=== PATIENT | male | born 1985 | race African-American/Black ===

== ENCOUNTER 2021-10-31 16:57 | Emergency (ER) | payer SELFPAY ==
[2021-10-31] MEDS ORDERED: LIDOCAINE 1% W/EPI 1:100,000 MDV 20 ML VIAL ONE (17:46)
[2021-10-31] MEDS ORDERED: TETANUS & DIPHTHERIA TOX,ADULT 0.5 ML VIAL ONE (17:47)
--- NOTE | 2021-10-31 18:01 | ER ---
Nurse's Notes [facility] Name: Steve Hayward Age: 36 yrs Sex: Male : 1985 Arrival Date: 10/31/2021 Time: 17:07 Bed 25 Private MD: Diagnosis: Laceration without foreign body of other part of head Presentation: 10/31 17:45 Chief complaint: Patient states: hit my head when stood up and have lac. Coronavirus [facility] screen: Vaccine status: Patient reports receiving the 2nd dose of the covid vaccine. Ebola Screen: Patient negative for fever greater than or equal to 101.5 degrees Fahrenheit, and additional compatible Ebola Virus Disease symptoms. Complicating Factors: There are no complicating factors for this patient. Initial Sepsis Screen: Does the patient meet any 2 criteria? No. Patient's initial sepsis screen is negative. Does the patient have a suspected source of infection? No. Patient's initial sepsis screen is negative. Risk Assessment: Do you want to hurt yourself or someone else? Patient reports no desire to harm self or others. Onset of symptoms was October 31, 2021. 17:45 Method Of Arrival: Ambulatory [facility] 17:45 Acuity: LAURA 4 [facility] Triage Assessment: 17:48 General: Appears in no apparent distress. Behavior is calm, cooperative. Pain: [facility] Complains of pain in left frontal area Pain currently is 3 out of 10 on a pain scale. Quality of pain is described as aching. Neuro: No deficits noted. Injury Description: Laceration sustained to left frontal area is clean, 0.5 to 2.5 cm long, not bleeding, is bleeding no active bleeding noted. Historical: - Allergies: 17:46 No Known Allergies; jh6 - PMHx: 17:46 cholesterol; 6 - Immunization history:: Client reports receiving the 2nd dose of the Covid vaccine. - Social history:: Smoking status: Patient denies any tobacco usage or history of. Vital Signs: 17:45 BP 123 / 65; Pulse 71; Resp 18; Temp 97.7(O); Pulse Ox 97% on R/A; Weight 133.81 kg; 6 Height 5 ft. 8 in. (172.72 cm); Pain 3/10; 17:45 Body Mass Index 44.85 (133.81 kg, 172.72 cm) [facility] ED Course: 17:07 Patient arrived in ED. mr 17:15 Cassy Trevizo FNP-C is [facility]. kb 17:15 Timo Rollins DO is Attending Physician. kb 17:46 Triage completed. jh6 17:49 Arm band placed on left wrist. Patient placed in the treatment room. jh6 17:50 Bed in low position. Side rails up X 1. jh6 18:06 Assist provider with laceration repair on top of head and left frontal area that was jh6 2.5 cm. or less using fer. Set up tray. Performed by Cassy MAHONEY Patient tolerated well. Wound care: located on top of head and left frontal area was cleaned with soap and water. 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 Exp: jh6 10/31/2022. Lot #: [id number]. } Route: IM; Site: left deltoid; 18:09 Follow up: Response: No adverse reaction [facility] Outcome: 18:00 Discharge ordered by . kb 18:08 Discharged to home ambulatory. jh6 18:08 Condition: improved 18:08 Discharge instructions given to patient, Instructed on discharge instructions, follow up and referral plans. Demonstrated understanding of instructions, follow-up care, wound care. 18:11 Patient left the ED. [facility] Signatures: Cassy Trevizo FNP-C FNP-Ckb CoxAleena mr ErazoNicole RN RN 6 Corrections: (The following items were deleted from the chart) 17:48 17:46 PMHx: None; [place] [id number]
--- NOTE | 2021-10-31 18:01 | EDPHYS ---
Physician Documentation [facility] Name: Steve Hayward Age: 36 yrs Sex: Male : 1985 Arrival Date: 10/31/2021 Time: 17:07 Bed 25 Private MD: ED Physician Timo Rollins HPI: 10/31 17:58 This 36 yrs old Black Male presents to ER via Ambulatory with complaints of Laceration kb To Head. 17:58 The patient has a laceration related to: working, occurred at work, and there are no kb complicating factors. The injury was accidental. The laceration(s) is(are) located on the top of head. Onset: The symptoms/episode began/occurred just prior to arrival. Associated signs and symptoms: The patient has no apparent associated signs or symptoms. The patient has not experienced similar symptoms in the past. The patient has not recently seen a physician. Pt states he stood up and hit his head on something that was above him causing laceration. No dizziness, headache, loc. Historical: - Allergies: 17:46 No Known Allergies; jh6 - PMHx: 17:46 cholesterol; [facility] - Immunization history:: Client reports receiving the 2nd dose of the Covid vaccine. - Social history:: Smoking status: Patient denies any tobacco usage or history of. ROS: 17:51 Constitutional: Negative for fever, chills, and weight loss. kb 17:51 Skin: Positive for laceration(s), of the top of head. 17:51 All other systems are negative. Exam: 17:51 Constitutional: This is a well developed, well nourished patient who is awake, alert, kb and in no acute distress. Eyes: Pupils equal round and reactive to light, extra-ocular motions intact. Lids and lashes normal. Conjunctiva and sclera are non-icteric and not injected. Cornea within normal limits. Periorbital areas with no swelling, redness, or edema. ENT: Moist Mucous membranes Cardiovascular: Regular rate and rhythm with a normal S1 and S2. No gallops, murmurs, or rubs. No pulse deficits. Respiratory: Respirations even and unlabored. No increased work of breathing. Talking in full sentences MS/ Extremity: Pulses equal, no cyanosis. Neurovascular intact. Full, normal range of motion. Neuro: Awake and alert, GCS 15, oriented to person, place, time, and situation. Moves all extremities. Normal gait. Psych: Awake, alert, with orientation to person, place and time. Behavior, mood, and affect are within normal limits. 17:51 Head/face: Noted is no obvious of injury or deformity except a laceration(s), that is linear, 4 cm(s), of the top of head. Vital Signs: 17:45 BP 123 / 65; Pulse 71; Resp 18; Temp 97.7(O); Pulse Ox 97% on R/A; Weight 133.81 kg; 6 Height 5 ft. 8 in. (172.72 cm); Pain 3/10; 17:45 Body Mass Index 44.85 (133.81 kg, 172.72 cm) [facility] Laceration: 17:58 Wound Repair of 4cm ( 1.6in ) subcutaneous laceration to top of head. Linear shaped.. kb Distal neuro/vascular/tendon intact. Anesthesia: Wound infiltrated with 3 mls of 1% lidocaine w/ Epi. Wound prep: Extensive cleansing with hibiclenz by ms, Wound irrigation with saline by ms. Skin closed with 5 1-0 Mcgraw using staple gun. Patient tolerated well. MDM: 17:38 Patient medically screened. kb 17:57 Data reviewed: vital signs, nurses notes. Data interpreted: Pulse oximetry: on room air kb is 97 %. Interpretation: normal. Counseling: I had a detailed discussion with the patient and/or guardian regarding: the historical points, exam findings, and any diagnostic results supporting the discharge/admit diagnosis, the need for outpatient follow up, a family practitioner, to return to the emergency department if symptoms worsen or persist or if there are any questions or concerns that arise at home. 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 Exp: jh6 10/31/2022. Lot #: [id number]. } Route: IM; Site: left deltoid; 18:09 Follow up: Response: No adverse reaction [facility] Disposition: 11/01 09:36 Co-signature as Attending Physician, Timo Rollins DO I was immediately available on-site ms3 in the Emergency Department for consultation in the care of the patient.. Disposition Summary: 10/31/21 18:00 Discharge Ordered Location: Home kb Condition: Stable kb Diagnosis - Laceration without foreign body of other part of head kb Followup: kb - With: Emergency Department - When: As needed - Reason: Worsening of condition Followup: kb - With: Private Physician - When: 2 - 3 days - Reason: Recheck today's complaints, Continuance of care, Re-evaluation by your physician Discharge Instructions: - Discharge Summary Sheet kb - Laceration Care, Adult, [id number] kb - Head Injury, Adult, [id number] kb Forms: - Medication Reconciliation Form kb - Thank You Letter kb - Work release form kb - Antibiotic Education kb - Prescription Opioid Use kb Signatures: Cassy Trevizo, REMELTER-C REMELTER-Ckb Timo Rollins DO DO ms3 Nicole Erazo RN RN 6 Corrections: (The following items were deleted from the chart) 10/31 17:48 17:46 PMHx: None; [place] [id number]
[2021-10-31 18:27] VITALS: BP 123/65; TEMP 97.7; O2SAT 97
== END 2021-10-31 18:11 | disposition home or self-care (01) ==
LOC: ER 16:57
PROC: 0JQ10ZZ Repair Face Subcutaneous Tissue and Fascia, Open Approach (ICD-10-PCS; principal; 2021-10-31)
DX: S01.81XA Laceration without foreign body of other part of head, initial encounter (principal); Z23 Encounter for immunization
CPT/HCPCS: 90714